=== PATIENT | male | born 1960 | race Two or more races ===

== ENCOUNTER 2020-09-21 08:39 | Emergency (ER) | payer OTHER ==
[~2020-09-21] VITALS: Ht 175.3 cm; Wt 89.4 kg
[2020-09-21] MEDS ORDERED: NORFLEX100MG PO (12:08)
[2020-09-21] MEDS ORDERED: KETO10TA2 PO (12:08)
== END 2020-09-21 12:14 | disposition home or self-care (01) ==
LOC: ER 08:39
DX: S30.0XXA Contusion of lower back and pelvis, initial encounter (principal); W10.8XXA Fall (on) (from) other stairs and steps, initial encounter; Y93.89 Activity, other specified; Y92.098 Other place in other non-institutional residence as the place of occurrence of the external cause; Y99.8 Other external cause status